=== PATIENT | female | born 2000 | race Caucasian/White ===

== ENCOUNTER 2022-01-04 13:58 | Outpatient (CLI) | payer SELFPAY | END 2022-01-04 13:59 | disposition EMS.NT | LOC: EMS 13:58 | DX: R07.89 Other chest pain (principal); V44.5XXA Car driver injured in collision with heavy transport vehicle or bus in traffic accident, initial encounter; Y92.410 Unspecified street and highway as the place of occurrence of the external cause ==

== ENCOUNTER 2022-01-05 08:00 | Outpatient (CLI) | payer OTHER ==
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
== END 2022-01-05 23:59 ==
LOC: DI.N 08:00
PROVIDERS: ATTEND Family Medicine
DX: M54.2 Cervicalgia (principal); M25.512 Pain in left shoulder